=== PATIENT | male | born 1965 | race Hispanic/Latino ===

== ENCOUNTER 2018-12-10 07:55 | Emergency (ER) | payer BC, OTHER ==
[2018-12-10] MEDS ORDERED: NA CHLORIDE 0.9% 1,000 ML ONE (08:19)
[2018-12-10] MEDS ORDERED: KETOROLAC 30 MG/ML INJ ONE (08:19)
[2018-12-10 08:32] LABS: Absolute Lymphocytes (CBC) 2.3 K/uL (0.7-4.9); Basophils % 0.7 % (0-1.3); Hematocrit 44.8 % (39.6-49.0); Lymphocytes % 33.8 % (15.3-44.8); RBC Red Blood Cell Count 4.59 M/uL (4.33-5.43)
[2018-12-10 08:48] LABS: Albumin 4.3 g/dL (3.4-5.0); Bilirubin Direct 0.2 mg/dL (0-0.2); Bilirubin Total 0.7 mg/dL (0.2-1.0); Potassium 4.6 mmol/L (3.5-5.1); Protein, Total 8.3 g/dL (6.4-8.2)
--- NOTE | 2018-12-10 09:02 | RAD REPORT ---
EXAM DESCRIPTION: CT - Stone Protocol - 12/10/2018 8:44 am CLINICAL HISTORY: Right flank pain radiating to the groin COMPARISON: None. TECHNIQUE: Axial 5 mm thick images were obtained without oral or IV contrast. The [id number] span s the entirety of the system including uppermost abdomen and lung bases. All CT scans are performed using dose optimization technique as appropriate and may include automated exposure control or mA/KV adjustment according to patient size. FINDINGS: Mild to moderate hydronephrosis is present on the right secondary to a 6 mm stone at the r ight UPJ or proximal ureter. Attenuation is 925 Hounsfield units. When viewed from a KUB projection t he stone is in proximity to the lateral margin L2 transverse process. Distal to the stone there is no hydronephrosis or additional ureteral calculus. No bladder calculi. No other calculi in the right ki dney. Left-side contains a 1 millimeter calyx calcification. No suspicious renal masses. Isodense mas ses and pyelonephritis are not excluded on a stone protocol CT scan. No urinary bladder suspicious fi nding. No significant adrenal finding. The liver is abnormal. Left lobe is enlarged. There is a prominent nodular contour to the liver capsu le. No focal liver parenchymal lesion is identified on noncontrast imaging. No splenomegaly. Pancreas is unremarkable. Cholecystectomy clips are present. No biliary tree dilatation. No suspicious bowel findings. No mass or bulky lymphadenopathy. Postsurgical changes are present at the umbilicus. No free air, wendy e fluid or inflammatory stranding. No acute bone finding. Degenerative changes are present in the lower lumbar spine. IMPRESSION: Mild to moderate hydronephrosis of the right side pelvis and calices secondary to a 6 mm stone near the right UPJ. When viewed from a KUB projection, the stone is closely approximated to the lateral margin L2 transve rse process. Attenuation is 925 Hounsfield units. Cirrhosis or diffuse hepatic parenchymal changes in the liver. No focal liver lesions seen on noncont rast imaging. Isodense masses and pyelonephritis are not excluded on stone protocol technique.
[2018-12-10] MEDS ORDERED: TAMSULOSIN 0.4 MG SR CAP ONE (10:40)
--- NOTE | 2018-12-10 10:42 | EDPHYS ---
Physician Documentation [facility] Name: Ezra Christianson Jr Age: 53 yrs Sex: Male : 1965 Arrival Date: 12/10/2018 Time: 07:56 Bed 19 Private MD: ED Physician Braxton Ward HPI: 12/10 08:13 This 53 yrs old Male presents to ER via Ambulatory with complaints of Possible kdr Kidney Stone. 08:13 The patient complains of pain in the right mid back. RLQ. Onset: The symptoms/episode kdr began/occurred last night. Modifying factors: The symptoms are alleviated by nothing. the symptoms are aggravated by movement, palpation/percussion. Associated signs and symptoms: Pertinent positives: dysuria, Pertinent negatives: diarrhea, dizziness, fever, urinary frequency, headache, hematuria, nausea, pain radiating to the lower extremities, vomiting. Severity of pain: At its worst the pain was moderate in the emergency department the pain has improved mildly. The patient has experienced similar episodes in the past, a few times. The patient has not recently seen a physician. Historical: - Allergies: 08:03 No Known Allergies; hb - Home Meds: 08:03 Harvoni Oral [Active]; Jardiance Oral [Active]; lisinopril Oral [Active]; Metformin hb Oral [Active]; - PMHx: 08:03 Diabetes - NIDDM; Hypertension; hb - PSHx: 08:03 RIGHT shoulder surgery; Right hip; hb - Immunization history:: Adult Immunizations up to date. - Social history:: Smoking status: Patient/guardian denies using tobacco. - Ebola Screening: : No symptoms or risks identified at this time. ROS: 08:13 Constitutional: Negative for fever, chills, and weight loss, Eyes: Negative for injury, kdr pain, redness, and discharge, Neck: Negative for injury, pain, and swelling, Cardiovascular: Negative for chest pain, palpitations, and edema, Respiratory: Negative for shortness of breath, cough, wheezing, and pleuritic chest pain, Back: Negative for injury and pain, : Negative for injury, bleeding, discharge, and swelling, MS/Extremity: Negative for injury and deformity, Skin: Negative for injury, rash, and discoloration, Neuro: Negative for headache, weakness, numbness, tingling, and seizure activity. Psych: Negative for depression, anxiety, suicide ideation, homicidal ideation, and hallucinations, Allergy/Immunology: Negative for hives, rash, and allergies, Endocrine: Negative for neck swelling, polydipsia, polyuria, polyphagia, and marked weight changes, Hematologic/Lymphatic: Negative for swollen nodes, abnormal bleeding, and unusual bruising. 08:13 Abdomen/GI: Positive for abdominal pain, Negative for nausea, vomiting, and diarrhea, constipation, abdominal cramps, abdominal distension, black/tarry stool, rectal pain, rectal bleeding. Exam: 08:13 Constitutional: This is a well developed, well nourished patient who is awake, alert, kdr and in no acute distress. Head/Face: Normocephalic, atraumatic. Eyes: Pupils equal round and reactive to light, extra-ocular motions intact. Lids and lashes normal. Conjunctiva and sclera are non-icteric and not injected. Cornea within normal limits. Periorbital areas with no swelling, redness, or edema. Neck: Trachea midline, no thyromegaly or masses palpated, and no cervical lymphadenopathy. Supple, full range of motion without nuchal rigidity, or vertebral point tenderness. No Meningismus. Chest/axilla: Normal chest wall appearance and motion. Nontender with no deformity. No lesions are appreciated. Cardiovascular: Regular rate and rhythm with a normal S1 and S2. No gallops, murmurs, or rubs. Normal PMI, no JVD. No pulse deficits. Respiratory: Lungs have equal breath sounds bilaterally, clear to auscultation and percussion. No rales, rhonchi or wheezes noted. No increased work of breathing, no retractions or nasal flaring. Back: No spinal tenderness. No costovertebral tenderness. Full range of motion. Skin: Warm, dry with normal turgor. Normal color with no rashes, no lesions, and no evidence of cellulitis. MS/ Extremity: Pulses equal, no cyanosis. Neurovascular intact. Full, normal range of motion. Neuro: Awake and alert, GCS 15, oriented to person, place, time, and situation. Cranial nerves II-XII grossly intact. Motor strength 5/5 in all extremities. Sensory grossly intact. Cerebellar exam normal. Normal gait. Psych: Awake, alert, with orientation to person, place and time. Behavior, mood, and affect are within normal limits. 08:13 Abdomen/GI: Inspection: abdomen appears normal, bruising, is not seen, distension, is not seen, obese Bowel sounds: diminished, in all quadrants, Palpation: soft, mild abdominal tenderness, in the right lower quadrant, rebound tenderness, is not appreciated. Vital Signs: 08:03 BP 166 / 106; Pulse 79; Resp 16; Temp 97.3; Pulse Ox 97% on R/A; Weight 76.2 kg; Height hb 5 ft. 6 in. (167.64 cm); Pain 8/10; 09:15 BP 158 / 99; Pulse 69; Resp 18 S; Pulse Ox 98% on R/A; Pain 5/10; aa5 10:50 BP 150 / 95; Pulse 72; Resp 18 S; Pulse Ox 98% on R/A; aa5 08:03 Body Mass Index 27.12 (76.20 kg, 167.64 cm) hb MDM: 08:13 Data reviewed: vital signs, nurses notes, lab test result(s), radiologic studies. kdr Counseling: I had a detailed discussion with the patient and/or guardian regarding: the historical points, exam findings, and any diagnostic results supporting the discharge/admit diagnosis, lab results, radiology results. 10:41 Patient medically screened. kdr 12/10 08:20 Order name: Basic Metabolic Panel; Complete Time: 10:10 kdr 12/10 08:20 Order name: CBC with Diff; Complete Time: 10:10 kdr 12/10 08:20 Order name: Creatinine for Radiology; Complete Time: 10:10 kdr 12/10 08:20 Order name: Hepatic Function; Complete Time: 10:10 kdr 12/10 08:20 Order name: CT Stone Protocol; Complete Time: 10:10 kdr 12/10 08:20 Order name: IV Saline Lock; Complete Time: 08:22 kdr 12/10 08:20 Order name: Labs collected and sent; Complete Time: 08:22 kdr Administered Medications: 08:20 Drug: NS 0.9% 500 ml Route: IV; Rate: bolus; Site: right antecubital; aa5 08:40 Follow up: IV Status: Completed infusion; IV Intake: 500ml aa5 08:20 Drug: TORadol - Ketorolac 15 mg Route: IVP; Site: right antecubital; aa5 08:21 Follow up: Response: No adverse reaction aa5 10:41 Drug: Flomax 0.4 mg Route: PO; aa5 11:10 Follow up: Response: No adverse reaction aa5 10:45 Drug: [place] (7.5 mg-325 mg) 1 tabs Route: PO; aa5 11:10 Follow up: Response: No adverse reaction aa5 Disposition: 12/10/18 10:41 Discharged to Home. Impression: Hydronephrosis with renal and ureteral calculous obstruction. - Condition is Stable. - Discharge Instructions: Kidney Stones, [id number], Hydronephrosis. - Prescriptions for Tylenol- Codeine #3 300-30 mg Oral Tablet - take 2 tablets by ORAL route every 6 hours As needed You may take one or two tablests every four to six hours; 16 tablet. Flomax 0.4 mg Oral Capsule, Sust. Release 24 hr - take 1 capsule by ORAL route once daily 1/2 hour following the same meal each day; 10 capsule. Bactrim DS 800- 160 mg Oral Tablet - take 1 tablet by ORAL route every 12 hours for 3 days; 6 tablet. promethazine 25 mg Oral Tablet - take 1 tablet by ORAL route every 6 hours As needed; 20 tablet. - Medication Reconciliation Form, Thank You Letter, Antibiotic Education, Prescription Opioid Use, Work release form form. - Follow up: Private Physician; When: Thursday. Follow up: Josie Soto MD; When: Thursday; Reason: Further diagnostic work-up, Recheck today's complaints, Re-evaluation by your physician. - Problem is an acute exacerbation. - Symptoms have improved. Signatures: Dispatcher [employer] [facility] Cherry Castellon RN RN sv Rittger, Kevin, MD MD [facility] Cristy Smith RN RN aa5 Tonie Wright RN RN Corrections: (The following items were deleted from the chart) 10:45 10:41 12/10/2018 10:41 Discharged to Home. Impression: Hydronephrosis with renal and kdr ureteral calculous obstruction. Condition is Stable. Forms are Medication Reconciliation Form, Thank You Letter, Antibiotic Education, Prescription Opioid Use. Follow up: Private Physician; When: Thursday. Problem is an acute exacerbation. Symptoms have improved. kdr 11:13 10:45 12/10/2018 10:41 Discharged to Home. Impression: Hydronephrosis with renal and aa5 ureteral calculous obstruction. Condition is Stable. Discharge Instructions: Kidney Stones, [id number], Hydronephrosis. Prescriptions for Tylenol-Codeine #3 300-30 mg Oral Tablet - take 2 tablets by ORAL route every 6 hours As needed You may take one or two tablests every four to six hours; 16 tablet, Flomax 0.4 mg Oral Capsule, Sust. Release 24 hr - take 1 capsule by ORAL route once daily 1/2 hour following the same meal each day; 10 capsule, Bactrim DS 800-160 mg Oral Tablet - take 1 tablet by ORAL route every 12 hours for 3 days; 6 tablet, promethazine 25 mg Oral Tablet - take 1 tablet by ORAL route every 6 hours As needed; 20 tablet. and Forms are Medication Reconciliation Form, Thank You Letter, Antibiotic Education, Prescription Opioid Use. Follow up: Private Physician; When: Thursday. Follow up: Josie Soto; When: Thursday; Reason: Further diagnostic work-up, Recheck today's complaints, Re-evaluation by your physician. Problem is an acute exacerbation. Symptoms have improved. kdr
--- NOTE | 2018-12-10 10:42 | ER ---
Nurse's Notes [facility] Name: Ezra Christianson Jr Age: 53 yrs Sex: Male : 1965 Arrival Date: 12/10/2018 Time: 07:56 Bed 19 Private MD: Diagnosis: Hydronephrosis with renal and ureteral calculous obstruction Presentation: 12/10 08:02 Presenting complaint: Right flank pain that radiates to groin. Transition of care: hb patient was not received from another setting of care. Onset of symptoms was December 10, 2018. Risk Assessment: Do you want to hurt yourself or someone else? Patient reports no desire to harm self or others. Initial Sepsis Screen: Does the patient meet any 2 criteria? No. Patient's initial sepsis screen is negative. Does the patient have a suspected source of infection? No. Patient's initial sepsis screen is negative. Care prior to arrival: None. 08:02 Method Of Arrival: Ambulatory hb 08:02 Acuity: BETI 3 hb Historical: - Allergies: 08:03 No Known Allergies; hb - Home Meds: 08:03 Harvoni Oral [Active]; Jardiance Oral [Active]; lisinopril Oral [Active]; Metformin hb Oral [Active]; - PMHx: 08:03 Diabetes - NIDDM; Hypertension; hb - PSHx: 08:03 RIGHT shoulder surgery; Right hip; hb - Immunization history:: Adult Immunizations up to date. - Social history:: Smoking status: Patient/guardian denies using tobacco. - Ebola Screening: : No symptoms or risks identified at this time. Screenin:10 Abuse screen: Denies threats or abuse. Nutritional screening: No deficits noted. aa5 Tuberculosis screening: No symptoms or risk factors identified. Fall Risk None identified. Assessment: 08:10 General: Appears comfortable, Behavior is calm, cooperative. Pain: Complains of pain in aa5 right flank Pain radiates to groin Pain currently is 5 out of 10 on a pain scale. Quality of pain is described as sharp, Pain began "this morning" Is intermittent, Alleviated by rest. Neuro: Level of Consciousness is awake, alert, obeys commands, Oriented to person, place, time, situation. Cardiovascular: Heart tones S1 S2 present Rhythm is regular. Respiratory: Airway is patent Respiratory effort is even, unlabored, Respiratory pattern is regular, symmetrical. GI: Abdomen is round non-distended, Bowel sounds present X 4 quads. Abd is soft X 4 quads Abdomen is tender to palpation in right lower quadrant Reports diarrhea, Patient currently denies nausea, vomiting. : Reports pain with urination, this morning. EENT: No signs and/or symptoms were reported regarding the EENT system. Derm: Skin is pink, warm \\T\\ dry. Musculoskeletal: Range of motion: intact in all extremities. 09:15 Reassessment: Patient is alert, oriented x 3, equal unlabored respirations, skin aa5 warm/dry/pink. 09:15 Pain: Pain currently is 5 out of 10 on a pain scale. aa5 11:10 Reassessment: Patient is alert, oriented x 3, equal unlabored respirations, skin aa5 warm/dry/pink. Vital Signs: 08:03 BP 166 / 106; Pulse 79; Resp 16; Temp 97.3; Pulse Ox 97% on R/A; Weight 76.2 kg; Height hb 5 ft. 6 in. (167.64 cm); Pain 8/10; 09:15 BP 158 / 99; Pulse 69; Resp 18 S; Pulse Ox 98% on R/A; Pain 5/10; aa5 10:50 BP 150 / 95; Pulse 72; Resp 18 S; Pulse Ox 98% on R/A; aa5 08:03 Body Mass Index 27.12 (76.20 kg, 167.64 cm) hb ED Course: 07:56 Patient arrived in ED. as 08:00 Braxton Ward MD is Attending Physician. kdr 08:03 Triage completed. hb 08:03 Arm band placed on. hb 08:06 Cristy Smith, RN is Primary Nurse. aa5 08:10 Patient has correct armband on for positive identification. Bed in low position. Call aa5 light in reach. Side rails up X 1. Adult w/ patient. 08:20 Inserted saline lock: 20 gauge in right antecubital area, using aseptic technique. aa5 Blood collected. 08:[address] via wheelchair. aa5 08:47 CT Stone Protocol In Process Unspecified. EDMS 10:45 Josie Soto MD is Referral Physician. kdr 11:10 No provider procedures requiring assistance completed. IV discontinued, intact, aa5 bleeding controlled, No redness/swelling at site. Pressure dressing applied. Administered Medications: 08:20 Drug: NS 0.9% 500 ml Route: IV; Rate: bolus; Site: right antecubital; aa5 08:40 Follow up: IV Status: Completed infusion; IV Intake: 500ml aa5 08:20 Drug: TORadol - Ketorolac 15 mg Route: IVP; Site: right antecubital; aa5 08:21 Follow up: Response: No adverse reaction aa5 10:41 Drug: Flomax 0.4 mg Route: PO; aa5 11:10 Follow up: Response: No adverse reaction aa5 10:45 Drug: [place] (7.5 mg-325 mg) 1 tabs Route: PO; aa5 11:10 Follow up: Response: No adverse reaction aa5 Intake: 08:40 IV: 500ml; Total: 500ml. aa5 Outcome: 10:41 Discharge ordered by . kdr 11:10 Discharged to home ambulatory, with family. aa5 11:10 Condition: stable 11:10 Discharge instructions given to patient, Instructed on discharge instructions, follow up and referral plans. medication usage, Demonstrated understanding of instructions, follow-up care, medications, Prescriptions given X 4. 11:13 Patient left the ED. aa5 Signatures: Dispatcher [employer] EDMS Braxton Ward MD MD kdr Martinez, Amelia as Calderon, Audri, RN RN aa5 Tonie Wright RN RN Corrections: (The following items were deleted from the chart) 11:22 11:10 Patient did not have IV access during this emergency room visit. aa5 aa5
[2018-12-10] MEDS ORDERED: HYDROCODONE/APAP 7.5/325 MG TAB ONE (10:45)
[2018-12-10 11:21] VITALS: BP 166/106; TEMP 97.3; O2SAT 97
== END 2018-12-10 11:13 | disposition home or self-care (01) ==
LOC: ER 07:55
DX: N13.2 Hydronephrosis with renal and ureteral calculous obstruction (principal); I10 Essential (primary) hypertension; E11.9 Type 2 diabetes mellitus without complications
CPT/HCPCS: 85025; 80048; 36415; 80076; 76377; 74176; 96374; 99284; J7030

== ENCOUNTER 2019-03-26 13:27 | Emergency (ER) | payer BC ==
--- NOTE | 2019-03-26 15:07 | ER ---
Nurse's Notes [facility] Name: Ezra Christianson Jr Age: 54 yrs Sex: Male : 1965 Arrival Date: 03/26/2019 Time: 13:30 Bed 20 Private MD: Diagnosis: Acute upper respiratory infection, unspecified;Unspecified perforation of tympanic membrane, left ear Presentation: 03/26 13:35 Presenting complaint: Patient states: Left ear pain started night; body aches, jl7 joint pain and abdominal pain, muscles weakness x 2 days. Transition of care: patient was not received from another setting of care. Onset of symptoms was March 24, 2019. Risk Assessment: Do you want to hurt yourself or someone else? Patient reports no desire to harm self or others. Initial Sepsis Screen: Does the patient meet any 2 criteria? No. Patient's initial sepsis screen is negative. Does the patient have a suspected source of infection? No. Patient's initial sepsis screen is negative. Care prior to arrival: None. 13:35 Method Of Arrival: Ambulatory [facility] 13:35 Acuity: BETI 3 jl7 Triage Assessment: 13:38 General: Appears in no apparent distress. uncomfortable, Behavior is calm, cooperative, jl7 appropriate for age. Pain: Complains of pain in all over Pain currently is 10 out of 10 on a pain scale. Quality of pain is described as aching, Pain began 2-3 days ago. Is continuous. Historical: - Allergies: 13:38 No Known Allergies; jl7 - Home Meds: 13:38 Jardiance Oral [Active]; Metformin Oral [Active]; lisinopril Oral [Active]; Lyrica Oral jl7 [Active]; - PMHx: 13:38 Diabetes - NIDDM; Hypertension; jl7 - PSHx: 13:38 RIGHT shoulder surgery; jl7 - Immunization history:: Adult Immunizations up to date. - Social history:: Smoking status: Patient/guardian denies using tobacco. - Ebola Screening: : No symptoms or risks identified at this time. Screenin:00 Abuse screen: Denies threats or abuse. Denies injuries from another. Nutritional ph screening: No deficits noted. Tuberculosis screening: No symptoms or risk factors identified. Fall Risk None identified. Assessment: 14:30 General: Appears in no apparent distress. comfortable, well groomed, Behavior is calm, ph cooperative, appropriate for age, Reports fever for 12-24 hours. Pain: Complains of pain in left ear. Neuro: Level of Consciousness is awake, alert, obeys commands, Oriented to person, place, time, situation. Cardiovascular: Capillary refill < 3 seconds in bilateral fingers Patient's skin is warm and dry. Respiratory: Airway is patent Respiratory effort is even, unlabored, Respiratory pattern is regular, symmetrical. GI: Patient currently denies abdominal pain, diarrhea, nausea, vomiting. Derm: Skin is intact, is healthy with good turgor, Skin is pink, warm \T\ dry. Musculoskeletal: Circulation, motion, and sensation intact. Range of motion: intact in all extremities, Reports pain in all over. Vital Signs: 13:38 BP 183 / 106; Pulse 66; Resp 17 S; Temp 98.3(O); Pulse Ox 99% on R/A; Weight 77.11 kg jl7 (R); Height 5 ft. 6 in. (167.64 cm) (R); Pain 10/10; 14:45 BP 155 / 98; Pulse 60; Resp 16; Temp 98.1(O); Pulse Ox 99% on R/A; mh5 13:38 Body Mass Index 27.44 (77.11 kg, 167.64 cm) jl7 ED Course: 13:30 Patient arrived in ED. mr 13:37 Triage completed. jl7 13:38 Arm band placed on right wrist. jl7 13:46 Feliciano Meza, CHUCK is PHCP. pm1 13:46 Randy Dozier MD is Attending Physician. pm1 13:57 Rubi Lake, KARINA is Primary Nurse. ph 14:09 Patient has correct armband on for positive identification. Bed in low position. Call [facility] light in reach. Pulse ox on. NIBP on. 14:09 Strep Sent. 5 14:09 Flu Sent. 5 14:09 Flu and/or RSV swab sent to lab. Strep swab sent to lab. 5 15:40 No provider procedures requiring assistance completed. Patient did not have IV access ph during this emergency room visit. Administered Medications: No medications were administered Outcome: 15:06 Discharge ordered by . pm1 15:45 Discharged to home ambulatory. ph 15:45 Condition: good 15:45 Discharge instructions given to patient, Instructed on discharge instructions, follow up and referral plans. medication usage, Demonstrated understanding of instructions, follow-up care, medications, Prescriptions given X 3. 15:48 Patient left the ED. ph 16:16 Patient left the ED. ph Signatures: Alisa Lopez Patricia, RN RN Feliciano Bran, [employer]MIN[employer] pm1 Denise Merritt 5 Allison Alvarado RN RN jl7
--- NOTE | 2019-03-26 15:07 | EDPHYS ---
Physician Documentation [facility] Name: Ezra Christianson Jr Age: 54 yrs Sex: Male : 1965 Arrival Date: 03/26/2019 Time: 13:30 Bed 20 Private MD: ED Physician Randy Dozier HPI: 03/26 13:55 This 54 yrs old Male presents to ER via Ambulatory with complaints of Flu pm1 Symptoms. 13:55 Onset: The symptoms/episode began/occurred 2 day(s) ago. pm1 13:55 The patient or guardian reports flu symptoms, joint pain and body aches, left ear pain, pm1 and occasional cough. Severity of symptoms: in the emergency department the symptoms are actually worse. Modifying factors: The symptoms are alleviated by nothing, the symptoms are aggravated by nothing. Associated signs and symptoms: Pertinent positives: earache, Pertinent negatives: chest pain, fever, sore throat, shortness of breath. The patient has experienced a previous episode, many years ago, symptoms similar to prior influenza. The patient has not recently seen a physician. 13:55 On , patient was cleaning his ear with a q-tip then decided to clean it with a pm1 constantine pin resulting in sensation of pain and weird sensation of popping to ear. No decreased hearing present. Historical: - Allergies: 13:38 No Known Allergies; jl7 - Home Meds: 13:38 Jardiance Oral [Active]; Metformin Oral [Active]; lisinopril Oral [Active]; Lyrica Oral jl7 [Active]; - PMHx: 13:38 Diabetes - NIDDM; Hypertension; jl7 - PSHx: 13:38 RIGHT shoulder surgery; jl7 - Immunization history:: Adult Immunizations up to date. - Social history:: Smoking status: Patient/guardian denies using tobacco. - Ebola Screening: : No symptoms or risks identified at this time. ROS: 13:55 Constitutional: Negative for fever, chills, and weight loss, Eyes: Negative for injury, pm1 pain, redness, and discharge. 13:55 Neck: Negative for injury, pain, and swelling, Cardiovascular: Negative for chest pain, palpitations, and edema. 13:55 Abdomen/GI: Negative for abdominal pain, nausea, vomiting, diarrhea, and constipation, Back: Negative for injury and pain, : Negative for injury, bleeding, discharge, and swelling, MS/Extremity: Negative for injury and deformity, Skin: Negative for injury, rash, and discoloration, Neuro: Negative for headache, weakness, numbness, tingling, and seizure. 13:55 ENT: Positive for ear pain, Negative for sinus congestion, sinus pain, sore throat, difficulty handling secretions, hoarseness. 13:55 Respiratory: Positive for cough, Negative for shortness of breath, sputum production, wheezing. Exam: 13:55 Constitutional: This is a well developed, well nourished patient who is awake, alert, pm1 and in no acute distress. Vital Signs: 13:38 BP 183 / 106; Pulse 66; Resp 17 S; Temp 98.3(O); Pulse Ox 99% on R/A; Weight 77.11 kg jl7 (R); Height 5 ft. 6 in. (167.64 cm) (R); Pain 10/10; 14:45 BP 155 / 98; Pulse 60; Resp 16; Temp 98.1(O); Pulse Ox 99% on R/A; mh5 13:38 Body Mass Index 27.44 (77.11 kg, 167.64 cm) jl7 MDM: 13:48 Patient medically screened. pm1 13:55 Refusal of service: The patient/guardian displays adequate decision making capability pm1 and despite a detailed discussion of alternatives, benefits, risks, and consequences refuses: CT Scan, blood work. He just wants to be tested for the flu. 15:00 Data reviewed: vital signs. Data interpreted: Pulse oximetry: on room air is 99 %. pm1 Interpretation: normal. Counseling: I had a detailed discussion with the patient and/or guardian regarding: the historical points, exam findings, and any diagnostic results supporting the discharge/admit diagnosis, lab results, the need for outpatient follow up, to return to the emergency department if symptoms worsen or persist or if there are any questions or concerns that arise at home. 15:00 ED course: Flu swab negative. Patient feels that is the flu and would like treatment pm1 for it. Therefore will prescribe Tamiflu. Got flu vaccine about 3 months ago. 03/26 13:54 Order name: Flu; Complete Time: 14:58 pm1 03/26 13:54 Order name: Strep; Complete Time: 14:58 pm1 03/26 14:57 Order name: Throat Culture EDLA Administered Medications: No medications were administered Disposition: 03/26/19 15:06 Discharged to Home. Impression: Acute upper respiratory infection, unspecified, Unspecified perforation of tympanic membrane, left ear. - Condition is Stable. - Discharge Instructions: Influenza, Adult, Eardrum Perforation, [id number]. - Prescriptions for Amoxicillin 500 mg Oral Capsule - take 1 capsule by ORAL route every 8 hours for 10 days; 30 tablet. Tamiflu 75 mg Oral Capsule - take 1 tablet by ORAL route every 12 hours for 5 days; 10 tablet. Ultracet 37.5- 325 mg Oral Tablet - take 1 tablet by ORAL route every 6 hours - for up to 5 days; do not exceed 8 tablets per day.; 15 tablet. - Work release form, Medication Reconciliation Form, Thank You Letter, Antibiotic Education, Prescription Opioid Use form. - Follow up: Emergency Department; When: As needed; Reason: Worsening of condition. Follow up: Private Physician; When: 2 - 3 days; Reason: Recheck today's complaints, Continuance of care, Re-evaluation by your physician. - Problem is new. - Symptoms have improved. Addendum: 03/28/2019 09:28 Co-signature as Attending Physician, aRndy Dozier MD I agree with the assessment and c chapman plan of care. Signatures: Dispatcher [employer] EDLA Randy Dozier MD MD cha Hall, Patricia, RN RN Feliciano Bran, OVEN DAUBER OVEN DAUBER pm1 Allison Alvarado RN RN jl7 Corrections: (The following items were deleted from the chart) 03/26 15:08 15:06 03/26/2019 15:06 Discharged to Home. Impression: Acute upper respiratory pm1 infection, unspecified. Condition is Stable. Forms are Medication Reconciliation Form, Thank You Letter, Antibiotic Education, Prescription Opioid Use. Follow up: Emergency Department; When: As needed; Reason: Worsening of condition. Follow up: Private Physician; When: 2 - 3 days; Reason: Recheck today's complaints, Continuance of care, Re-evaluation by your physician. Problem is new. Symptoms have improved. pm1 15:48 15:08 03/26/2019 15:06 Discharged to Home. Impression: Acute upper respiratory ph infection, unspecified; Unspecified perforation of tympanic membrane, left ear. Condition is Stable. Forms are Medication Reconciliation Form, Thank You Letter, Antibiotic Education, Prescription Opioid Use. Follow up: Emergency Department; When: As needed; Reason: Worsening of condition. Follow up: Private Physician; When: 2 - 3 days; Reason: Recheck today's complaints, Continuance of care, Re-evaluation by your physician. Problem is new. Symptoms have improved. pm1 16:16 15:48 03/26/2019 15:06 Discharged to Home. Impression: Acute upper respiratory ph infection, unspecified; Unspecified perforation of tympanic membrane, left ear. Condition is Stable. Discharge Instructions: Influenza, Adult, Eardrum Perforation, [id number]. Prescriptions for Amoxicillin 500 mg Oral Capsule - take 1 capsule by ORAL route every 8 hours for 10 days; 30 tablet, Tamiflu 75 mg Oral Capsule - take 1 tablet by ORAL route every 12 hours for 5 days; 10 tablet. and Forms are Medication Reconciliation Form, Thank You Letter, Antibiotic Education, Prescription Opioid Use, Work release form. Follow up: Emergency Department; When: As needed; Reason: Worsening of condition. Follow up: Private Physician; When: 2 - 3 days; Reason: Recheck today's complaints, Continuance of care, Re-evaluation by your physician. Problem is new. Symptoms have improved. ph
[2019-03-26 16:42] VITALS: BP 155/98; TEMP 98.1; O2SAT 99
== END 2019-03-26 16:16 | disposition home or self-care (01) ==
LOC: ER 13:27
DX: J06.9 Acute upper respiratory infection, unspecified (principal); H72.92 Unspecified perforation of tympanic membrane, left ear; E11.9 Type 2 diabetes mellitus without complications; I10 Essential (primary) hypertension
CPT/HCPCS: 87070; 87081; 87804; 99283